=== PATIENT | female | born 1935 | race African-American/Black ===

== ENCOUNTER 2020-07-23 20:11 | Emergency (ER) | payer OTHER, MEDICAID ==
[~2020-07-23] VITALS: Ht 167.6 cm; Wt 90.0 kg
[~2020-07-23 20:11] MED LIST: EPINEPHRINE 0.1MG/ML (1:10,000) 10ML SYR ONE; ETOMIDATE 2MG/ML 10ML VIAL IV ONE; SODIUM BICARBONATE 8.4% 1 MEQ/ML 50ML SYR IV ONE; SUCCINYLCHOLINE CHLORIDE 200MG/10ML IV ONE
[2020-07-23] MEDS ORDERED: CEFEPIME 1,000 MG in DEXTROSE 5% WATER 50 ML IV SCH (21:30)
[2020-07-23] MEDS ORDERED: SODIUM CHLORIDE 0.9% 1000ML BAG (SEPSIS BOLUS) IV ONE (21:30)
[2020-07-23] MEDS ORDERED: VANCOMYCIN 1 G PREMIX 200 ML IV ONE (21:30)
[2020-07-23 22:12] LABS: CHLORIDE 114 mEq/L (98-107)
[2020-07-23 22:14] LABS: INR 1.2; PROTHROMBIN TIME 12.4 sec (9.6-11.0)
[2020-07-23] MEDS ORDERED: NOREPINEPHRINE 8MG/250ML PMX 250 ML IV ONE (22:15)
[2020-07-23 22:21] LABS: BASOPHILS % 0.4 % (0.0-2.0); EOSINOPHILS % 1.1 % (0.0-5.0); MEAN CORPUSCULAR VOLUME 113.3 fL (81.0-99.0); MEAN PLATELET VOLUME 9.2 fl (7.4-10.4); MONOCYTES % 1.2 % (2.0-8.0); NEUTROPHILS % 84.3 % (40.0-76.0); PLATELET 57 x1000/uL (130-400); RED BLOOD CELL COUNT 1.37 mill/uL (4.2-5.4); RED CELL DISTRIBUTION WIDTH 24.1 % (11.6-14.6)
[2020-07-23 22:25] LABS: HEMATOCRIT. 15.6 % (36.0-48.0); HEMOGLOBIN. 4.4 g/dL (12.0-16.0)
[2020-07-23] MEDS ORDERED: VERAPAMIL HCL 2.5 MG/1 ML 2ML VIAL IV ONE (22:30)
[2020-07-23] MEDS ORDERED: EPINEPHRINE 0.1MG/ML (1:10,000) 10ML SYR ONE ×2 (22:30→23:00)
[2020-07-23 22:36] VITALS: BP 50/32
[2020-07-23] MEDS ORDERED: VASOPRESSIN 20 UNIT in SODIUM CHLORIDE 0.9% 99 ML IV PRN (22:45)
[2020-07-23 22:46] LABS: PLATELET ESTIMATE MARKEDLY DECREASED
[2020-07-23] MEDS ORDERED: CALCIUM CHLORIDE 1GM/10ML SYR IV ONE (23:00)
[2020-07-23] MEDS ORDERED: SODIUM BICARBONATE 8.4% 1 MEQ/ML 50ML SYR IV ONE (23:00)
[2020-07-24] MEDS ORDERED: EPINEPHRINE 0.1MG/ML (1:10,000) 10ML SYR IV ONE (00:30)
[2020-07-24] MEDS ORDERED: AMIODARONE HCL 300 MG in DEXT 5% WATER 100 ML IV ONE (00:30)
[2020-07-24] MEDS ORDERED: SODIUM BICARBONATE 8.4% 1 MEQ/ML 50ML SYR IV ONE ×6 (00:30)
[2020-07-24] MEDS ORDERED: ATROPINE SULFATE 1MG/10ML SYR IV ONE (00:30)
[2020-07-24] MEDS ORDERED: CALCIUM CHLORIDE 1GM/10ML SYR IV ONE (00:30)
== END 2020-07-24 03:19 | disposition expired ==
LOC: ER 20:11 → EDBEDREQ 22:36 → EDBEDREQTM 22:36 → EDBEDREQSVC 22:36 → ENRESERV 22:39 → CANRESERV 22:39 → CMPBEDREQ 23:07 → ER 07-24 03:19
DX: I46.9 Cardiac arrest, cause unspecified (principal); A41.9 Sepsis, unspecified organism; J96.90 Respiratory failure, unspecified, unspecified whether with hypoxia or hypercapnia; D64.9 Anemia, unspecified; E11.65 Type 2 diabetes mellitus with hyperglycemia; I10 Essential (primary) hypertension; Z85.9 Personal history of malignant neoplasm, unspecified; Z88.0 Allergy status to penicillin; Z91.013 Allergy to seafood
CPT/HCPCS: 31500; 36415; 36556; 80053; 82010; 82962; 83605; 84145; 84484; 85025; 85610; 87040; 87077; 87186; 93005; 94002; 96361; 96365; 96375; 99291; J0330; J0692; J3490; J7030; J7060; J0282